=== PATIENT | female | born 1980 | race Hispanic/Latino ===

== ENCOUNTER → 2021-03-25 | Emergency (ER) | payer SELFPAY ==
[~2021-03-25] VITALS: Ht 172.7 cm; Wt 86.2 kg
[~2021-03-25] MED LIST: ACETAMINOPHEN 325 MG TAB PO ONE; KETOROLAC TROMETHAMINE 30 MG/ML VIAL IV STA; LEVETIRACETAM 500MG/5ML VIAL 500 MG in SODIUM CHLORIDE 0.9% 100 ML 100 ML IV SCH; POTASSIUM CHLORIDE 20 MEQ TAB CR PO STA; SODIUM CHLORIDE 0.9% 1000ML 1,000 ML IV ONE
[2021-03-25 17:47] LABS: CLARITY,URINE HAZY (CLEAR); COLOR,URINE PINK (YELLOW); KETONES,URINE NEGATIVE (NEGATIVE); LEUKOCYTE ESTERASE ,URINE TRACE (NEGATIVE); NITRITE,URINE NEGATIVE (NEGATIVE); PROTEIN,URINE DIPSTICK 2+ (NEGATIVE)
[2021-03-25 17:48] LABS: AMPHETAMINES SCREEN,URINE NEGATIVE (NEGATIVE); BENZODIAZEPINES SCREEN,URINE NEGATIVE (NEGATIVE); PHENCYCLIDINE SCREEN,URINE NEGATIVE (NEGATIVE); URINE UROBILINOGEN 0.2 mg/dL (0.2 - 1)
[2021-03-25 17:48] LABS: BASOPHILS % 0.5 % (0.0-1.0); EOSINOPHILS # (AUTO) 0.1 (0.0-0.4); EOSINOPHILS % 0.8 % (0.0-6.0); LYMPHOCYTES # (AUTO) 2.1 (1.0-3.2); LYMPHOCYTES % 26.9 % (18.0-39.1); MEAN CORPUSCULAR HEMOGLOBIN 23.7 pg (28-32); MEAN CORPUSCULAR HGB CONC 31.6 g/dL (31-35); MONOCYTES # (AUTO) 0.6 (0.2-0.8); MONOCYTES % 7.2 % (4.4-11.3); NEUTROPHILS # (AUTO) 4.9 (2.1-6.9); NEUTROPHILS % 63.4 % (38.7-80.0); PLATELET COUNT 287 x10e3/uL (140-360); RED BLOOD COUNT 5.07 x10e6/uL (3.6-5.1)
[2021-03-25 18:01] LABS: RBC,URINE >50 /HPF (0-5)
[2021-03-25 18:02] LABS: ALBUMIN/GLOBULIN RATIO 1.1 (0.8-2.0); CALCIUM 8.4 mg/dL (8.4-10.2); CREATININE, SERUM 0.91 mg/dL (0.57-1.11)
== END | disposition home or self-care (01) ==
LOC: ER 17:09
DX: G40.909 Epilepsy, unspecified, not intractable, without status epilepticus (principal)
CPT/HCPCS: 36415; 80053; 80307; 81001; 84702; 85025; 99282; J1885; J1953; J7030